=== PATIENT | female | born 1990 | race Hispanic/Latino ===

== ENCOUNTER 2021-07-03 03:09 | Emergency (ER) | payer OTHER ==
[~2021-07-03] VITALS: Ht 160 cm; Wt 78.0 kg
[2021-07-03] MEDS ORDERED: ALBUTEROL INHALER 90MCG/INH IH ONE (04:30)
[2021-07-03 04:34] VITALS: BP 129/78
== END 2021-07-03 04:35 | disposition home or self-care (01) ==
LOC: EDH 03:09
DX: U07.1 COVID-19 (principal); F41.9 Anxiety disorder, unspecified; R06.00 Dyspnea, unspecified